=== PATIENT | female | born 1990 | race African-American/Black ===

== ENCOUNTER 2019-10-28 16:30 | Inpatient (IN) | payer OTHER ==
[2019-10-28 17:52] VITALS: BMI 35.9
--- NOTE | 2019-10-28 19:02 | HP ---
Past Medical History - Primary Care Physician PCP:: Virginia Oliver - Admission Chief Complaint: Leaking fluid per vagina History of Present Illness: 29 yo . JUWAN 10/26/19. EGA 40 weeks 2 days, presented with above, but no bleeding pr vagina. History Source: Patient Limitations to Obtaining History: No Limitations - Past Medical History ...: 2 ...Para: 0 ...Induced : 1 ...LMP: 01/19/19 ... Weeks Gestation by Dates: 40.1 ...EDC by Dates: 10/27/19 ...EDC by Sono: 10/27/19 - Past Surgical History Past Surgical History: Yes: None Hx Myomectomy: No Hx Transabdominal Cerclage: No - Smoking History Smoking history: Never smoked Have you smoked in the past 12 months: No - Alcohol/Substance Use Hx Alcohol Use: No History of Substance Use: reports: None - Social History History of Recent Travel: No Home Medications - Allergies Allergies/Adverse Reactions: Allergies Allergy/AdvReac Type Severity Reaction Status Date / Time No Known Allergies Allergy Verified 10/28/19 17:05 - Home Medications Home Medications: Ambulatory Orders Prenat 115/Iron Fum/Folic/Dss [ 19 Tablet] 1 tab PO DAILY 10/28/19 Family Medical History Family History: Denies Review of Systems - Review of Systems Constitutional: reports: No Symptoms Eyes: reports: No Symptoms HENT: reports: No Symptoms Neck: reports: No Symptoms Cardiovascular: reports: No Symptoms Respiratory: reports: No Symptoms Gastrointestinal: reports: No Symptoms Genitourinary: reports: No Symptoms Breasts: reports: No Symptoms Reported Musculoskeletal: reports: No Symptoms Integumentary: reports: No Symptoms Neurological: reports: No Symptoms Endocrine: reports: No Symptoms Hematology/Lymphatic: reports: No Symptoms Psychiatric: reports: No Symptoms Physical Exam - Maternity Vital Signs: Vital Signs Temperature 99.1 F 10/28/19 17:45 Pulse Rate 110 H 10/28/19 17:09 Respiratory Rate 10/28/19 17:09 Blood Pressure 123/83 10/28/19 17:09 O2 Sat by Pulse Oximetry (%) Constitutional: Yes: Well Nourished Eyes: Yes: WNL HENT: Yes: WNL Neck: Yes: WNL Cardiovascular: Yes: WNL - Abdominal Exam/OB Fundal Height: 39 Number of Fetuses: Single Presentation: Vertex Contractions: Yes Regularity: Irregular Intensity: Mild Monitor Mode: External Heart Rate (range): 140 Heart Rate Location: [facility] Category: I Accelerations: Uniform Decelerations: None - Vaginal Exam/OB Vaginal Bleeding: No Dilatation (cm): 0 Effacement (%): 0 Amniotic Membrane Status: Leaking Nitrazine Test: Positive Amniotic Fluid: Yes: Clear Presentation: Vertex/Position Station: -3 - Physical Exam Musculoskeletal: Yes: WNL Extremities: Yes: WNL Edema: No Integumentary: Yes: WNL ...Motor Strength: WNL Psychiatric: Yes: WNL Hemorrhage Risk Assessment - Risk Factors Medium Risk Factors: Yes: None High Risk Factors: Yes: None Risk Score: 1 Risk Level: Medium Risk Problem List - Problems (1) 40 weeks gestation of Code(s): Z3A.40 - 40 WEEKS GESTATION OF (2) Amniotic fluid leaking Code(s): O42.90 - GAYLE ROM, 7TH0 BETW RUPT & ONST LABR, UNSP WEEKS OF GEST Assessment/Plan 29 yo full term gestation with ruptured membranes Admit L and D for management.
[2019-10-28] MEDS ORDERED: DINOPROSTONE 10 MG VAGINAL SUPPOSITORY VG ONE (20:16)
[2019-10-28 20:52] LABS: BASO % 0.3 % (0-2.0); EOS % 0.5 % (0-4.5); HEMATOCRIT 33.6 % (32.4-45.2); HEMOGLOBIN 11.4 GM/dL (10.7-15.3); LYMPH % 26.6 % (8-40); MCH 32.8 pg (25.7-33.7); MCHC 33.8 g/dl (32.0-36.0); MEAN PLT VOLUME 8.2 fl (7.5-11.1); MONO % 12.8 % (3.8-10.2); NEUT % 59.8 % (42.8-82.8); PLATELET COUNT 393 K/MM3 (134-434); RBC 3.47 M/mm3 (3.60-5.2); WHITE BLOOD COUNT 9.7 K/mm3 (4.0-10.0)
[2019-10-28 21:07] LABS: INR 0.89 (0.83-1.09); PROTHROMBIN TIME (PATIENT) 10.5 SEC (9.7-13.0)
[2019-10-28 21:09] LABS: BLOOD UREA NITROGEN 8.6 mg/dL (7-18); CALCIUM 9.1 mg/dL (8.5-10.1); CREATININE 0.6 mg/dL (0.55-1.3)
[2019-10-28 21:10] LABS: ACTIVATED PTT 28.2 SECONDS (25.2-36.5)
[2019-10-28] MEDS: LACTATED RINGERS SOLUTION 1,000 ML/1,000 ML INFUS.BAG IV SCH (21:12)
--- NOTE | 2019-10-29 02:51 | PN ---
Progress Note (short form) - Note Progress Note: Patient resting comfortably VSS, afebrile EFM - Baseline 140/min, moderate variability, accelerations, no decelerations [place] - irregular Pelvic - deferred Plan - Full term gestation on cervidil ripening Cervidil inserted et 2009 on 10/28/19 Anticipate vaginal delivery. Problem List - Problems (1) 40 weeks gestation of Code(s): Z3A.40 - 40 WEEKS GESTATION OF (2) Amniotic fluid leaking Code(s): O42.90 - GAYLE ROM, 7TH0 BETW RUPT & ONST LABR, UNSP WEEKS OF GEST
[2019-10-29] MEDS ORDERED: DINOPROSTONE 10 MG VAGINAL SUPPOSITORY VG ONE (10:32)
--- NOTE | 2019-10-29 10:40 | PN ---
Progress Note (short form) - Note Progress Note: pt. resting comfortably, without complaints vss - af fhr: 145 , mod variability toco: uc's irreg ve: 1-/-3 cervidil replaced (prior one was found dried on floor under bed this am ? fell out earlier) a/p iup post edc, was scheduled for iol this weekend but no show. pt. states was hesitant and somewhat scared, so waited until srom occurred yest p.m. to come to hospital. cervidil placed last night and fell out at some time (?) replaced this am. cont. close monitoring
[2019-10-29] MEDS ORDERED: AMPICILLIN SODIUM 2 GM VIAL ONE (13:32)
[2019-10-29] MEDS ORDERED: AMPICILLIN - 2 GM in SODIUM CHLORIDE 100 ML IVPB ONE (14:20)
[2019-10-29] MEDS ORDERED: AMPICILLIN SODIUM 1 GM VIAL ONE ×2 (17:26→21:13)
[2019-10-29] MEDS: AMPICILLIN - 1 GM in SODIUM CHLORIDE 100 ML IVPB SCH ×2 (17:31→21:31)
--- NOTE | 2019-10-29 17:43 | PN ---
Progress Note (short form) - Note Progress Note: pt. states feeling stronger uc's vss-af fhr: 140, + accels, mod variabilty toco: uc's q5-6 min ve: 250/-3. 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
[2019-10-29] MEDS ORDERED: OXYTOCIN 30 UNITS in 0.9% NS 30 UNIT/500 ML INFUS.BAG IVPB SCH (17:45)
[2019-10-29] MEDS ORDERED: OXYTOCIN 30 UNITS in 0.9% NS 30 UNIT/500 ML INFUS.BAG IVPB ONE (18:14)
[2019-10-29] MEDS ORDERED: SODIUM CHLORIDE 100 ML IVPB ONE (21:13)
--- NOTE | 2019-10-29 23:04 | PN ---
Progress Note (short form) - Note Progress Note: Patient starting to feel contractions FHR- 150, moderate variability, positive accelerations, no deceleration, cat1, decelertaion x1 noted [place]- irregular VE- 3cm/50%/-3 meconium Continue pitocin anticipate vaginal delivery, close monitoring.
[2019-10-30] MEDS: LACTATED RINGERS SOLUTION 1,000 ML/1,000 ML INFUS.BAG IV SCH ×2 (01:38→08:57)
[2019-10-30] MEDS: AMPICILLIN - 1 GM in SODIUM CHLORIDE 100 ML IVPB SCH ×3 (01:39→08:58)
[2019-10-30] MEDS ORDERED: AMPICILLIN SODIUM 1 GM VIAL ONE ×2 (01:44→05:37)
[2019-10-30] MEDS ORDERED: SODIUM CHLORIDE 100 ML IVPB ONE ×2 (01:44→05:37)
[2019-10-30] MEDS ORDERED: PCA PUMP NR ONE ×3 (01:44→08:19)
[2019-10-30] MEDS ORDERED: FENTANYL/BUPIVACAINE/NS/PF - PCEA - 50 ML DISP.SYRIN EP ONE ×3 (01:44→10:34)
[2019-10-30] MEDS ORDERED: LIDO 2%/EPI 1:200000 PRESRVFRE (20 ML SDVIAL) ONE ×3 (01:46→06:49)
[2019-10-30] MEDS: FENTANYL/BUPIVACAINE/NS/PF - PCEA - 50 ML DISP.SYRIN EP SCH ×2 (02:05→10:43)
[2019-10-30] MEDS ORDERED: NALOXONE HCL 0.4 MG/ML VIAL IVPUSH PRN (02:13)
[2019-10-30] MEDS ORDERED: BUPIVACAINE HCL/PF 0.25% (2.5MG/ML) 10 ML VIAL ONE (08:40)
[2019-10-30] MEDS ORDERED: OXYTOCIN 20 UNITS in 0.9% NS 20 UNIT/1,000 ML INFUS.BAG IV ONE (12:07)
--- NOTE | 2019-10-30 12:22 | PN ---
Progress Note (short form) - Note Progress Note: SROM since 10/27 meconium stain fluid has epidural and pitocin infusion category 2 tracing face mask O2 VE fully dilated instructed to push
[2019-10-30] MEDS: IBUPROFEN 600 MG TABLET (FP) PO PRN ×3 (13:10→23:43)
[2019-10-30] MEDS ORDERED: IBUPROFEN 600 MG TABLET (FP) PO ONE (13:11)
--- NOTE | 2019-10-30 13:31 | PN ---
Delivery - Delivery Vaginal Delivery: Spontaneous Type of Anesthesia: Epidural Episiotomy/Laceration: Right Mediolateral EBL (cc): 400 (repair done with 2-0 chromic. Occult cord.) Delivery, Single - Stages of Labor Placenta: Yes: Spontaneous - Condition of Infant Gender: Male - 1 Minute Total Score: 8 5 Minutes Total Score: 9 - Feeding Plan Initial Plan: Exclusive throughout hospitalization
[2019-10-30] MEDS ORDERED: BISACODYL 10 MG SUPP.RECT RC PRN (13:33)
[2019-10-30] MEDS ORDERED: WITCH HAZEL 50% (TUCKS) 40 PAD/JAR PAD TP PRN (13:33)
[2019-10-30] MEDS ORDERED: BENZOCAINE 28 GM HEMORRHOIDAL OINTMENT TP PRN (13:33)
[2019-10-30] MEDS ORDERED: METHYLERGONOVINE MALEATE 0.2 MG/1 ML AMP IM PRN (13:33)
[2019-10-30] MEDS ORDERED: BENZOCAINE 20% 57 GM BOTTLE TP PRN (13:33)
[2019-10-30 13:44] LABS: CORD BASE EXCESS -7.4 mmol/L (0-2); CORD HCO3 22.1 mmHg (20-29); CORD PCO2 63.1 mmHg (30-78); CORD pH 7.163 (7.14-7.44)
[2019-10-30 13:46] LABS: CORD BASE EXCESS -9.2 mmol/L (0-2); CORD HCO3 21.2 mmHg (20-29); CORD pH 7.112 (7.14-7.44)
[2019-10-30] MEDS ORDERED: OXYTOCIN 20 UNITS in 0.9% NS 1000 ML INFUS.BAG IV ONE (14:56)
[2019-10-30] MEDS ORDERED: OXYTOCIN 20 UNITS in 0.9% NS 20 UNIT/1,000 ML INFUS.BAG IV SCH (15:15)
[2019-10-30] MEDS: ACETAMINOPHEN 325 MG TABLET (FP) PO PRN ×3 (15:47→23:43)
[2019-10-31] MEDS: AMPICILLIN - 1 GM in SODIUM CHLORIDE 100 ML IVPB SCH (07:21)
[2019-10-31 08:31] LABS: BASO % 0.1 % (0-2.0); EOS % 1.9 % (0-4.5); HEMATOCRIT 31.1 % (32.4-45.2); HEMOGLOBIN 10.3 GM/dL (10.7-15.3); LYMPH % 12.6 % (8-40); MCHC 33.2 g/dl (32.0-36.0); MEAN CELL VOLUME 96.3 fl (80-96); MEAN PLT VOLUME 7.7 fl (7.5-11.1); MONO % 7.2 % (3.8-10.2); NEUT % 78.2 % (42.8-82.8); PLATELET COUNT 385 K/MM3 (134-434); RBC 3.23 M/mm3 (3.60-5.2); RDW 14.1 % (11.6-15.6); WHITE BLOOD COUNT 12.3 K/mm3 (4.0-10.0)
[2019-10-31] MEDS: ACETAMINOPHEN 325 MG TABLET (FP) PO PRN ×3 (09:15→19:55)
[2019-10-31] MEDS: IBUPROFEN 600 MG TABLET (FP) PO PRN ×3 (09:15→19:55)
--- NOTE | 2019-10-31 13:25 | PN ---
Post Progress Note Post Day: 1 Type of Delivery: Vital Signs: Vital Signs Temperature 98.4 F 10/31/19 09:00 Pulse Rate 117 H 10/31/19 09:00 Respiratory Rate 18 10/31/19 09:00 Blood Pressure 121/76 10/31/19 09:00 O2 Sat by Pulse Oximetry (%) 99 10/30/19 13:55 Breast Exam: Yes: Soft Uterus: Yes: Fundus Firm Abdomen/GI: Yes: Abdomen soft Lochia: Yes: Rubra Lochia, amount: Small Extremities: Yes: Calves non-tender Perineum: Yes: Episiotomy Activity: Ambulating - Labs Labs: CBC WBC 12.3 K/mm3 (4.0-10.0) H 10/31/19 07:50 RBC 3.23 M/mm3 (3.60-5.2) L 10/31/19 07:50 Hgb 10.3 GM/dL (10.7-15.3) L 10/31/19 07:50 Hct 31.1 % (32.4-45.2) L 10/31/19 07:50 MCV 96.3 fl (80-96) H 10/31/19 07:50 MCH 32.0 pg (25.7-33.7) 10/31/19 07:50 MCHC 33.2 g/dl (32.0-36.0) 10/31/19 07:50 RDW 14.1 % (11.6-15.6) 10/31/19 07:50 Plt Count 385 K/MM3 (134-434) 10/31/19 07:50 MPV 7.7 fl (7.5-11.1) 10/31/19 07:50 Absolute Neuts (auto) 9.6 K/mm3 (1.5-8.0) H 10/31/19 07:50 Neutrophils % 78.2 % (42.8-82.8) D 10/31/19 07:50 Lymphocytes % 12.6 % (8-40) D 10/31/19 07:50 Monocytes % 7.2 % (3.8-10.2) 10/31/19 07:50 Eosinophils % 1.9 % (0-4.5) D 10/31/19 07:50 Basophils % 0.1 % (0-2.0) 10/31/19 07:50 Nucleated RBC % 0 % (0-0) 10/31/19 07:50
[2019-10-31] MEDS ORDERED: SENNOSIDES/DOCUSATE COMBO (SENNA PLUS) TABLET (UD) PO PRN (22:00)
[2019-11-01] MEDS: ACETAMINOPHEN 325 MG TABLET (FP) PO PRN ×2 (02:01→09:39)
[2019-11-01] MEDS: IBUPROFEN 600 MG TABLET (FP) PO PRN ×2 (02:01→09:38)
--- NOTE | 2019-11-01 10:08 | DS ---
Physical Exam-JANITORIAL MANAGER Vital Signs: Vital Signs Temperature 98.6 F 10/31/19 22:00 Pulse Rate 98 H 10/31/19 22:00 Respiratory Rate 18 10/31/19 22:00 Blood Pressure 126/74 10/31/19 22:00 O2 Sat by Pulse Oximetry (%) 99 10/31/19 14:00 Constitutional: Yes: Well Nourished, No Distress, Calm Cardiovascular: Yes: Regular Rate and Rhythm Respiratory: Yes: CTA Bilaterally Gastrointestinal: Yes: Normal Bowel Sounds, Soft ...Rectal Exam: Yes: WNL Renal/: Yes: WNL Pelvis: Yes: WNL External Genitalia: Yes: Normal Internal Exam Deferred: No Vaginal Exam: Yes: Normal ....Post : Yes: Uterus firm, Uterus non-tender Breast(s): Yes: WNL Musculoskeletal: Yes: WNL Extremities: Yes: WNL Edema: No ...Motor Strength: WNL Psychiatric: Yes: Alert, Oriented Labs: CBC, BMP 10/31/19 07:50 10/28/19 20:10 Delivery - Delivery Vaginal Delivery: Spontaneous Type of Anesthesia: Epidural Episiotomy/Laceration: Right Mediolateral EBL (cc): 400 (repair done with 2-0 chromic. Occult cord.) Delivery, Single - Stages of Labor Date 1st Stage Initiatied: 10/30/19 Time 1st Stage Initiated: 00:00 Date 2nd Stage Initiated: 10/30/19 Time 2nd Stage Initiated: 12:20 Date of Delivery: 10/30/19 Time of Delivery: 12:46 Time Placenta Delivered: 13:00 Placenta: Yes: Spontaneous - Condition of Infant [place]/Director Of Radiology Present: No Infant Gender: Male Weight: 3.232 kg Total Hours ROM (Hrs/Mins): 47/56 - 1 Minute Total Score: 8 5 Minutes Total Score: 9 - Feeding Plan Initial Plan: Exclusive throughout hospitalization Discharge Summary Problems reviewed: Yes Reason For Visit: RUPTURE OF MEMBRANE Current Active Problems 40 weeks gestation of (Acute) Amniotic fluid leaking (Acute) Goals: Discharge home, f/u for PP visit in 2-3 weeks, PPH and preeclampsia precautions discused, continue PNV, pelvic rest x 6 weeks Condition: Good - Instructions Diet, Activity, Other Instructions: regular diet Disposition: HOME - Home Medications Comprehensive Discharge Medication List: Ambulatory Orders Prenat 115/Iron Fum/Folic/Dss [ 19 Tablet] 1 tab PO DAILY 10/28/19
[2019-11-01 11:57] VITALS: BP 124/83; PULSE 89; TEMP 98.5
== END 2019-11-01 15:35 | disposition home or self-care (01) | DRG 807 ==
LOC: JDEL 16:30 → JLDR 17:30 → J3W 10-30 14:35
PROVIDERS: ADMIT Obstetrics & Gynecology; ATTEND Obstetrics & Gynecology
PROC: 3E0P7VZ Introduction of Hormone into Female Reproductive, Via Natural or Artificial Opening (ICD-10-PCS; 2019-10-28)
PROC: 3E033VJ Introduction of Other Hormone into Peripheral Vein, Percutaneous Approach (ICD-10-PCS; 2019-10-29)
PROC: 10E0XZZ Delivery of Products of Conception, External Approach (ICD-10-PCS; principal; 2019-10-30)
PROC: 0W8NXZZ Division of Female Perineum, External Approach (ICD-10-PCS; 2019-10-30)
DX: O42.12 Full-term premature rupture of membranes, onset of labor more than 24 hours following rupture (principal); Z37.0 Single live birth; O48.0 Post-term pregnancy; Z3A.40 40 weeks gestation of pregnancy; O77.0 Labor and delivery complicated by meconium in amniotic fluid
CPT/HCPCS: 36415; 36600; 59409; 80048; 82803; 85025; 85610; 85730; 86780; 86850; 86900; 86901; U0003